=== PATIENT | female | born 1995 | race Caucasian/White ===

== ENCOUNTER 2022-02-13 18:55 | Inpatient (IN) | payer MEDICAID, SELFPAY ==
[2022-02-13] VITALS (8 sets, daily range): BP systolic 119–133; BP diastolic 67–90; PULSE 86–105; TEMP 36.3–36.6; O2SAT 98; BMI 39.4
[2022-02-13 19:54] LABS: Absolute Lymphocyte Count 2.13 X10^3/uL (0.83-4.51); Absolute Neutrophil Count 5.6 X10^3/uL (2.0-7.7); Basophil# 0.01 X10^3/uL; Basophil% 0.1 % (0-1); Eosinophil# 0.11 X10^3/uL; Eosinophils% 1.3 % (0-5); Hematocrit 34.2 % (37-47); Lymphocyte # 2.13 X10^3/ul (0.83-4.51); Lymphocyte % 24.8 % (19-41); Mean Corp Hgb Conc 32.2 g/dL (32-36); Mean Corpuscular Hgb 28.9 pg (27.0-32.0); Mean Corpuscular Volume 89.8 fL (81-99); Mean Platelet Vol. 10.8 fl (6.2-12.0); Monocyte# 0.73 X10^3/uL; Monocyte% 8.5 % (0-10); NRBC Flagged by Analyzer 0 % (0-5); Neutrophil # 5.55 X10^3/uL (2.7-7.7); Neutrophil % 64.7 % (47-70); Platelet Count 272 K/mm3 (150-450); RBC Distribution Width CV 14.1 % (11.6-14.6); RBC Distribution Width SD 45.3 fl (35.1-43.9); Red Blood Count 3.81 M/mm3 (4.2-5.4); White Blood Count 8.6 K/mm3 (4.4-11.0)
--- NOTE | 2022-02-13 19:59 | HP.PCM.OB_ITS ---
HPI - General General Date of Admission: 02/13/22 HPI Narrative MACRINA HERRERA, is a 27 F at 38.6 weeks gestation who presents for induction of labor. Patient seen in office today and BPP 08/16. Points taken off for movement. Patient reports a decrease in movement as well. MFM recommendation was for induction/ delivery. Patient has history of section with first delivery due to maternal exhaustion and request by patient for section. She desires TOLAC today. complicated by obesity, and excessive weight gain of 41 lbs. EFW 72%, WALTER normal at 14. Patient has already been counseled on R/B/A to TOLAC and consents signed. Maternal Data Information CAMILA Calculator Estimated Delivery Date Method Current WG Current Estimate 02/21/22 Manual 38w 6d PFSH PFSH Medical History Asthma Trauma Home Medications Unisom (diphenhydramine) sleep aid 02/13/22 [History Last Taken Unknown] magnesium 250 02/13/22 [History Last Taken Unknown] Allergy/AdvReac Type Severity Reaction Status Date / Time fluoxetine Allergy Intermediate Other Verified 02/13/22 19:33 Family History no significant family his Surgical History History of gynecologic surgery Previous section Surgical History no surgical history Social History Smoking Status: Former smoker History Elective abortions Hx Para 1 Spontaneous abortions Hx # Term Pregnancies Ectopic pregnancies Hx # Pregnancies Multiple births # of living children Visit Details OB Flowsheet Initial Weight: Not Recorded Date -?-?-?-?-?-?-?-?-?-?-?-?- EGA Weight BP Urine Prot -?-?-?-?-?-?-?-?-?-?-?-?- Glucose FHR FuHt Pres Dilation -?-?-?-?-?-?-?-?-?-?-?-?- Effaced St Visit Note 02/13/22 -?-?-?-?-?-?-?-?-?-?-?-?- 38w 6d 222 lb 6 oz 133/90 131/84 129/80 -?-?-?-?-?-?-?-?-?-?-?-?- -?-?-?-?-?-?-?-?-?-?-?-?- NST FHR Rate Baby A Baseline: 135 Variability:: Moderate Accelerations:: 15 x 15 Decelerations:: None NST Reactive:: Yes FHR Category:: Category I Uterine Activity:: irregular contractions ROS Eyes Eyes: Denies blurry vision, change in vision or spots in vision ENT HEENT: Denies dizziness or headache(s) Cardiovascular Cardiovascular: Denies abdominal pain, chest pain or dyspnea Respiratory/Chest Respiratory/Chest: Denies cough, dyspnea, shortness of breath at rest or shortness of breath with exertion Gastrointestinal Gastrointestinal: Denies abdominal pain, diarrhea or vomiting Genitourinary Genitourinary: Denies change in urinary stream, difficulty urinating or dysuria Musculoskeletal Musculoskeletal: Reports none Integumentary Integumentary: Denies rash Neurologic Neurologic: Denies dizziness, headache(s), memory loss or weakness Psychiatric Psychiatric: Reports none Vital Signs Vital Signs Vital Signs: 02/13/22 19:40 02/13/22 19:40 02/13/22 19:40 Temperature 97.7 F L Pulse Rate 102 H Blood Pressure 133/90 H BP Systolic 133 BP Diastolic 90 Pulse Ox 02/13/22 19:40 02/13/22 19:40 Temperature Pulse Rate 105 H Blood Pressure BP Systolic BP Diastolic Pulse Ox 98 Physical Exam Const alert, oriented x3 and no apparent distress General Appearance: cooperative Orientation / Consciousness: awake Exam Limitations: no limitations HEENT normocephalic Head and Scalp: normal to inspection Eyes General Eye: normal appearance of both eyes Neck full ROM and no lymphadenopathy Lymph Lymphatic: no lymphadenopathy noted Chest inspection of chest normal Resp normal respiratory effort, normal air movement and clear to auscultation bilaterally Effort and Inspection: able to speak in complete sentences and symmetric chest movement Cardio regular rate and regular rhythm GI normal to inspection, nondistended, normoactive bowel sounds Manual OB Exam: presentation cephalic Back/Spine normal ROM Extremity full ROM and no calf tenderness Skin no rashes or lesions noted General Skin Exam: no breakdown Neuro oriented x3 and CN's II-XII intact bilaterally Psych mental status grossly normal and thought process normal Labs Labs Labs: Blood Type B POSITIVE Antibody Screen NEGATIVE Hct 34.2 % (37-47) L Hgb 11.0 g/dL (12.0-15.0) L Rubella- immune HB- neg GBS neg RPR- NR HIV- NR Assessment & Plan (1) 38 weeks gestation of : (2) Obesity: (3) History of delivery, antepartum: (4) Encounter for induction of labor: (5) Patient desires vaginal after section (): PLAN: Plan Admit to labor and delivery Routine labs Start IV and run fluids per policy TOLAC consent signed CE- /-2 AROM for clear fluid Pain medications/epidural when indicated- patient desires unmedicated labor and delivery at this time Anticipate Dr. Gould involved in plan of care and is collaborating physician- in route to hospital
[2022-02-13 21:02] LABS: Hepatitis C Antibody Non-Reactive (Nonreactive)
[2022-02-13] MEDS: Lactated Ringers 1,000 ML 50 ML IV (21:21)
[2022-02-14] VITALS (41 sets, daily range): BP systolic 108–133; BP diastolic 54–80; PULSE 94–134; RESP 16–18; TEMP 35.8–37.1; O2SAT 94–100
[2022-02-14] MEDS: Mag Hydrox/Al Hydrox/Simeth 30 ML UDC PO (00:43)
[2022-02-14] MEDS: LACTATED RINGERS 500 ML 999 ML IV (00:51)
[2022-02-14] MEDS: Oxytocin 15 Units/NS 250ml 15 UNITS/250 ML IV.SOLN 83 UNITS IV (03:35)
--- NOTE | 2022-02-14 04:08 | EX.PCM.OBRPT ---
Assessment & Plan (1) Vaginal after (): (2) Laceration, obstetrical, second degree: Maternal Data Information CAMILA Calculator Estimated Delivery Date Method Current WG Current Estimate 02/21/22 Manual 39w 0d Vaginal Delivery Maternal Presentation Maternal Presentation: Medically Indicated Induction Type of Induction: Amniotomy Medical Reason for Induction: - (BPP 6/8- decreased movement) Operative Information Date of Procedure: 02/14/22 Pre-Operative Diagnosis: Term gestation, TOLAC Post-Operative Diagnosis: , live female Surgery / Procedure Performed: Type of Anesthesia: Local with 2% Lidocaine Estimated Blood Loss: 300 Time of Delivery: 03:33 Findings Description of Procedure: Called to patient's bedside for delivery. With minimal maternal effort, head delivered. Loose nuchal cord easily reduced, followed by delivery of posterior shoulder and remainder of body without use of traction. Vigorous female placed on maternal abdomen and attended to by nursing staff. Pitocin IV started for active management of the third stage of labor. 3 vessel cord clamped and cut by FOB and infant placed immediately skin to skin with patient. Placenta delivered spontaneously and intact. Patient's bladder emptied via red joseph. After local anesthesia administered, a second degree laceration was repaired in usual fashion using Vicryl 3-0 Rapid. Hemostasis obtained. EBL 300 cc. APGARS 9/9. Patient and infant bonding well at this time. Dr. Gould on unit and notified of delivery. Presentation: Vertex and TIFFANY Amniotic Membrane Rupture Type: Artificial Time of Membrane Rupture: 2022 Amniotic Fluid Description: Clear Placental Delivery Description: Spontaneous Placenta Disposition: [facility] Cord Vessel Description: 3 Vessels Cord Entanglement: Around neck x 1, loose Nuchal Cord Compression: Without compression Infant A Gender: Female (1 minute): 9 (5 minute): 9 Delayed Cord Clamping: Yes Post Vaginal Delivery Medications Given After Delivery: IV Pitocin Episiotomy Description: None Laceration: 2nd degree Complication Complications: None
[2022-02-14] MEDS: Naproxen 500 MG Tablet PO ×3 (05:22→21:16)
[2022-02-14] MEDS: Benzocaine/Lanolin/Aloe Vera 1 SPRAY EACH TOPICAL (05:33)
[2022-02-14] MEDS: Acetaminophen 500 MG Tablet 1000 MG PO ×3 (06:07→18:46)
[2022-02-14] MEDS: Senna/Docusate Sodium 1 Tablet PO (06:07)
--- NOTE | 2022-02-14 08:45 | NURSING ---
Pt up to BR. RN stand by assist due to patient feeling lightheaded with the last ambulation. Pt denies lightheadedness or dizziness but c/o SOB. Pt respirations >20 with walking. HR 135 after ambulation and decreased to 120 after pt sitting for a few minutes. Pt states that she is still SOB after ambulating and resting in bed. Bleeding is small, fundus firm. Will notify provider. Advised Pt to call nursing staff with ambulating while symptoms persist. Pt verbalized understanding.
--- NOTE | 2022-02-14 09:18 | NURSING ---
Called Dr. Denis to update on Pt symptoms of lightheadedness and shortness of breath. Reviewed VS pre and post delivery, EBL at delivery and lab work. Order received for CBC and update Dr. Denis with results.
--- NOTE | 2022-02-14 09:30 | NURSING ---
Pt c/o cramping with nursing. Pt is not due for tylenol or naproxen until 1200. Offered to call Doctor for order for stronger medication but patient declined. K-Pad set up in room to help with cramping.
[2022-02-14 09:47] LABS: Hematocrit 29.9 % (37-47); Hemoglobin 10.2 g/dL (12.0-15.0); Mean Corp Hgb Conc 34.1 g/dL (32-36); Mean Corpuscular Hgb 30.2 pg (27.0-32.0); Mean Corpuscular Volume 88.5 fL (81-99); Mean Platelet Vol. 10.1 fl (6.2-12.0); Platelet Count 239 K/mm3 (150-450); RBC Distribution Width SD 45.3 fl (35.1-43.9); Red Blood Count 3.38 M/mm3 (4.2-5.4); White Blood Count 13.7 K/mm3 (4.4-11.0)
--- NOTE | 2022-02-14 10:10 | NURSING ---
Dr. Denis updated on CBC results. States to have patient push fluids and monitor over the next 2 hours. Will update around lunchtime with vital signs and pt status.
--- NOTE | 2022-02-14 10:15 | NURSING ---
Discussed with patient about pushing fluids the next 2 hours and retaking vital signs around lunchtime.
--- NOTE | 2022-02-14 13:13 | NURSING ---
updated Dr. Denis on recent VS and that patient states that she is slowly improving. No new orders received but wants patient to continue drinking plenty of fluids.
[2022-02-15] VITALS (7 sets, daily range): BP systolic 101–115; BP diastolic 60–73; PULSE 93–108; RESP 16–18; TEMP 36.1–36.4
[2022-02-15] MEDS: Acetaminophen 500 MG Tablet 1000 MG PO ×2 (03:33→10:12)
--- NOTE | 2022-02-15 07:20 | DCINST_ITS ---
Discharge Instructions Diet Discharge Diet: No restrictions Activity Discharge Activity: May Shower May resume sexual activity in: 6 weeks (Nothing in the vagina for 6 weeks) Ice area for (Minutes): 15 Weight Bearing Status: Weight bearing as tolerated Lifting Restrictions: Nothing heavier than baby Dressing / Incision Call your doctor if you observe: Fever of 101 or Higher, Coldness, Increased Pain, Numbness or Tingling, Change in Color, Inability to urinate, Inability to have a bowel movement, Using more than 1 pad per hour, Shortness of breath, Dizziness, Fainting spells, Swelling in the ankles, Chest pain, Increased palpitations (irregular heartbeat), Calf discomfort and Uncontrolled pain Cleanse incision/area with: - (Warm water with shower head. Pat dry or blow dry) Follow Up Care When: 1-2 weeks for early 6 weeks for and exam Test Results: Test results from this visit will be discussed in further detail at your follow- up appointment, if applicable. Discharge Plan Admission Admit Date/Time: 02/13/22 18:55 Primary Reason for Your Visit: delivery Attending Provider: Aga Malik Instructions Patient Instructions: After a Vaginal Discharge Orders/Prescriptions Prescriptions: Continued [id number] 1 mg Tablet 1 tab PO DAILY Discontinued Unisom (diphenhydramine) 25 mg PO/SL PRN PRN (Reason: Sleep) Rx Instructions: patient unsure of dose. magnesium 250 mg PO.IVFORM DAILY Disposition Disposition (needs filled in before D/C Order can be placed): Home, Self Care
--- NOTE | 2022-02-15 07:21 | PN.OBGYN_ITS ---
Subjective Subjective Pt doing well and offers no complaints. Having some cramping with breast- feeding. Breast-feeding is going well. She is ambulating and voiding without difficulty. Lochia is normal. She is tolerating regular diet without nausea or vomiting. She denies lightheadedness, dizziness, chest pain, shortness of breath, leg pain. She desires discharge today. Objective Data Objective Data Vital Signs: Vital Signs Temp Pulse Resp BP Pulse Ox O2 Del Method 97.2 F L 93 18 115/73 98 Room Air 02/15/22 03:45 02/15/22 03:45 02/15/22 03:45 02/15/22 03:45 02/14/22 21:20 02/14/22 21:20 Oxygen Delivery Method Room Air Weight: 222 lb 6 oz Body Mass Index (BMI) 39.4 Intake & Output: Intake and Output for Last 24 Hours 02/13/22 02/14/22 02/15/22 23:59 23:59 23:59 Intake Total 1066.67 / 1066.67 Balance 1066.67 / 1066.67 Lab / Micro Data Result Diagrams: 02/14/22 09:35 Labs: Laboratory Results - last 24 hr 02/14/22 09:35: WBC 13.7 H, RBC 3.38 L, Hgb 10.2 L, Hct 29.9 L, MCV 88.5, MCH 30.2, MCHC 34.1 D, RDW Std Deviation 45.3 H, RDW Coeff of Taryn 14.0, Plt Count 239, MPV 10.1 Physical Exam Const alert and no apparent distress General Appearance: comfortable Assessment & Plan (1) Vaginal after (): PLAN: day 1 after a vaginal delivery. She is doing well and meeting milestones for discharge. Discharge instructions reviewed. Orders placed. F ollow-up in the office in 1 to 2 weeks. (2) Laceration, obstetrical, second degree:
[2022-02-15] MEDS: Naproxen 500 MG Tablet PO (08:32)
[2022-02-15] MEDS: Senna/Docusate Sodium 1 Tablet PO (08:32)
== END 2022-02-15 13:45 | disposition home or self-care (01) | DRG 560 ==
PROVIDERS: Obstetrics & Gynecology; Admitting Provider Advanced Practice Midwife; Visit Provider Advanced Practice Midwife
DX: O36.8130 Decreased fetal movements, third trimester, not applicable or unspecified (principal); Z37.0 Single live birth; O34.219 Maternal care for unspecified type scar from previous cesarean delivery; O70.1 Second degree perineal laceration during delivery; Z87.891 Personal history of nicotine dependence; Z3A.38 38 weeks gestation of pregnancy; O69.81X0 Labor and delivery complicated by cord around neck, without compression, not applicable or unspecified; O99.214 Obesity complicating childbirth
CPT/HCPCS: 59025; 59050; 85025; 85027; 86803; 86850; 86900; 86901; 99218; 99406; J7120; G0378